=== PATIENT | female | born 1990 | race Caucasian/White ===

== ENCOUNTER → 2017-06-22 | Outpatient (CLI) | payer OTHER | LOC: BMCIMAGING 11:39 | PROVIDERS: ATTEND Internal Medicine | DX: M25.521 Pain in right elbow (principal); S22.42XD Multiple fractures of ribs, left side, subsequent encounter for fracture with routine healing ==

== ENCOUNTER → 2018-04-05 | Outpatient (CLI) | payer OTHER | LOC: BMCIMAGING 11:37 | PROVIDERS: ATTEND Nurse Practitioner Adult Health | DX: R07.81 Pleurodynia (principal); S22.42XS Multiple fractures of ribs, left side, sequela ==